=== PATIENT | male | born 1980 | race Caucasian/White ===

== ENCOUNTER 2017-03-19 15:40 | Emergency (ER) | payer OTHER ==
[2017-03-19 15:54] VITALS: BP 150/90
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
== END 2017-03-19 16:48 | disposition home or self-care (01) ==
LOC: JP.ED 15:40
DX: F41.9 Anxiety disorder, unspecified (principal); E78.00 Pure hypercholesterolemia, unspecified; F17.210 Nicotine dependence, cigarettes, uncomplicated; Z90.49 Acquired absence of other specified parts of digestive tract
CPT/HCPCS: 99283